=== PATIENT | female | born 1990 | race African-American/Black ===

== ENCOUNTER 2024-09-05 17:36 | Emergency (ER) | payer MEDICAID ==
[~2024-09-05] VITALS: Ht 162.6 cm; Wt 86.1 kg
[2024-09-05 17:41] VITALS: BP 134/71; PULSE 83; RESP 16; TEMP 97.9; O2SAT 100
[2024-09-05] MEDS: BACITRACIN ZINC OINT UDPKT TOP ONE (21:00)
[2024-09-05] MEDS: LIDOCAINE HCL/PF 1% 10 MG/ML 5ML VIAL INFIL ONE (21:00)
== END 2024-09-05 21:42 | disposition home or self-care (01) ==
LOC: ER 17:36
DX: S61.412A Laceration without foreign body of left hand, initial encounter (principal); X58.XXXA Exposure to other specified factors, initial encounter; Y93.89 Activity, other specified; Y92.89 Other specified places as the place of occurrence of the external cause; Y99.8 Other external cause status
CPT/HCPCS: 99282; 12001; J3490